=== PATIENT | male | born 1990 | race Two or more races ===

== ENCOUNTER 2024-05-03 18:10 | Emergency (ER) | payer OTHER ==
[~2024-05-03] VITALS: Ht 185.4 cm; Wt 88.5 kg
[2024-05-03] MEDS ORDERED: KETOROLAC TROMETHAMINE 30 MG VIAL IM ONE (19:30)
[2024-05-03] MEDS ORDERED: KETOROLAC TROMETHAMINE 30 MG VIAL ONE (19:40)
== END 2024-05-03 20:02 | disposition home or self-care (01) ==
LOC: ER 18:12
DX: S46.211A Strain of muscle, fascia and tendon of other parts of biceps, right arm, initial encounter (principal); X58.XXXA Exposure to other specified factors, initial encounter; Y93.89 Activity, other specified; Y92.89 Other specified places as the place of occurrence of the external cause; Y99.9 Unspecified external cause status